=== PATIENT | male | born 1960 | race Caucasian/White ===

== ENCOUNTER 2016-05-29 05:26 | Inpatient (IN) | payer MEDICARE ==
[~2016-05-29] VITALS: Ht 182.9 cm; Wt 73.5 kg
--- NOTE | 2016-06-02 10:29 | CO ---
ADMIT: 05/29/2016 RM/LOC: 409 [facility] MR#: [id number] [address] [facility] [address] [place] [phone] DANITZA CARRIZALES [address] [place] [address] Consultation SEX: M AGE: 55 : 1960 DATE OF CONSULTATION: 05/31/2016 ATTENDING PHYSICIAN: Favio Guadalupe CONSULTING PHYSICIAN: Corby Blevins MD HISTORY OF PRESENT ILLNESS: This 55-year-old gentleman was seen in consultation with bilateral pleural effusion, and he has had left thoracentesis done and 2 L of fluid has been removed by interventional Radiology earlier and labs pending. I discussed with Dr. Guadalupe, who admitted him. There is a diagnosis of non-Hodgkin lymphoma, but I was mistakenly told that it was multiple myeloma in 2011. He has subsequently received stem cell transplantation after chemotherapy. He has come in with increased shortness of breath. He is also due to have the right thoracentesis by Interventional Radiology again. 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 He has been a heavy smoker, although he has been trying to cut it down. He has lost some weight, and his appetite remains good. He does have some lower chest right upper abdomen discomfort with bending. He has not felt any lump at this time, but on initial presentation, he had lymph nodes in both axilla and also in the groin area. The biopsy it seems was obtained from the axillary lymph node biopsy, also cervical lymph node biopsy. Aspiration of the groin lymph node done that I understand was nonconclusive. On general physical evaluation, he is a very pleasant gentleman, did not appear to be in any distress. He thinks he can breathe better with the fluid off. He is afebrile, heart rate around 95, respiration 18, and blood pressure 108/76. On 2 L, his oxygen saturation was 97%. He had no palpable lymphadenopathy in the neck. There was no lymph node in the groin. There was no clubbing. He has extensive areas of friction rub on the left chest where the thoracentesis has been done. The right is due to be done. No heart murmur. Distinct organomegaly could not be appreciated. There was no edema or calf tenderness. His chest x-ray and CT scans reviewed, large pleural effusion on the left, smaller on the right side noted. LABORATORY INVESTIGATIONS: Hemoglobin of 8.6, platelet 131, and white count ADMIT: 05/29/2016 RM/LOC: 409 [facility] MR#: [id number] [address] [address] [place] [address] Consultation SEX: M AGE: 55 : 1960 5.5. His BUN 29, creatinine 1.5. IMPRESSION: 1. Bilateral pleural effusion, left more than the right. Thoracentesis done on the left. Right one to be done. 2. Non-Hodgkin lymphoma status post chemo and bone marrow transplantation. Possibility of reactivation of the disease process needs to be worked up. Oncology is going to see. From my standpoint if the fluid reoccurs, he may need a video-assisted thoracoscopic pleurodesis at least on one site if not on both is indeed it is a reactivation of the underlying non- Hodgkin lymphoma. Hopefully, further chemotherapy will be necessary. No pulmonary intervention is anticipated at this point. Corby Blevins MD/ bhavin JOB #: [id number] CC: Favio Guadalupe, Attending Physician Adarsh Mancia, Family Physician
[2016-06-03] MEDS ORDERED: NORCO 5-325 TA1 EACH PO (11:14)
--- NOTE | 2016-06-05 07:13 | CO ---
ADMIT: 05/29/2016 RM/LOC: 409 [facility] MR#: [id number] [address] [address] DANITZA CARRIZALES [address] [place] [address] Consultation SEX: M AGE: 55 : 1960 DATE OF CONSULTATION: 05/31/2016 ATTENDING PHYSICIAN: Favio Guadalupe CONSULTING PHYSICIAN: Joel Diaz MD HISTORY OF PRESENT ILLNESS: This is a 55-year-old male seen in Surgical consultation for possible lymph node biopsy. Danitza, in 2011, was diagnosed with non-Hodgkin's lymphoma. He underwent treatment, which included chemotherapy as well as stem cell transplant for that at that point. Last night, he presented to the ER with complaints of shortness of breath and difficulty with breathing. He was evaluated with a CT of the chest, which demonstrated large bilateral pleural effusions as well as axillary and mediastinal adenopathy. He does describe some recent fatigue, but has otherwise really been without significant health change. PAST MEDICAL HISTORY: 1. COPD with prior smoking history. 2. Non-Hodgkin's lymphoma, status post stem cell transplant. MEDICATIONS ON ADMISSION: Please see the medication reconciliation notes. ALLERGIES: PENICILLIN. PAST SURGICAL HISTORY: 1. Stem cell transplant. 2. Lymph node biopsies. 3. Port insertion. FAMILY HISTORY: Significant for Alzheimer's and Ruth Gehrig disease. REVIEW OF SYSTEMS: Symptoms recently developed are mentioned in the history of present illness, and the remainder of the 10-point review of systems is otherwise negative for recent change. PHYSICAL EXAMINATION: GENERAL: Danitza is alert, oriented, and in no acute distress. VITAL SIGNS: His cranial nerves are intact. He is afebrile. His vital signs are stable. HEENT: Sclerae appear anicteric. NECK: Supple, without palpable lymphadenopathy. LUNGS: Clear today bilaterally after draining the pleural effusions yesterday. ADMIT: 05/29/2016 RM/LOC: 409 [facility] MR#: [id number] [address] [address] DANITZA CARRIZALES [address] [place] [address] Consultation SEX: M AGE: 55 : 1960 HEART: Regular rate and rhythm. ABDOMEN: Soft and nontender. EXTREMITIES: Calves are soft bilaterally with no clubbing, cyanosis, or edema. AXILLAE: Exam of bilateral axilla reveal bilateral palpable enlarged lymph nodes, more easily palpable on the right. IMPRESSION: History of non-Hodgkin's lymphoma with new lymphadenopathy and pleural effusions. PLAN: I have recommended proceeding with right axillary lymph node biopsy for assistance with management for Oncology. I discussed the risks of that with Lele today in detail and he does wish to proceed. Joel Diaz MD/ bhavin JOB #: [id number] CC: Favio Guadalupe, Attending Physician Adarsh Mancia, Family Physician
--- NOTE | 2016-06-05 07:13 | OR ---
ADMIT: 05/29/2016 RM/LOC: 409 [facility] MR#: [id number] [address] [address] DANITZA CARRIZALES [address] [place] [address] Operative/Delivery Room Report SEX: M AGE: 55 : 1960 SURGERY DATE: 06/02/2016 SURGEON: Joel Diaz MD PREOPERATIVE DIAGNOSIS: Lymphoma history with axillary adenopathy. POSTOPERATIVE DIAGNOSIS: Lymphoma history with axillary adenopathy. PROCEDURE: Right axillary deep lymph node excisional biopsy. ANESTHESIA: General. ESTIMATED BLOOD LOSS: 10 mL. DESCRIPTION OF PROCEDURE: The patient was taken to the operating room and placed supine on the operating room table. General anesthesia was established. The right axilla was prepped and draped in the standard surgical fashion. The prior scar and this site was incised sharply. Dissection proceeded sharply into the axillary content. One of the very enlarged nodes was carefully identified and excised carefully with cautery and sent as specimen. The wound was irrigated and there was no bleeding. This node measured nearly 3 cm in diameter. The deep tissue was closed with 3-0 Vicryl suture. Skin edges were approximated with 4-0 Monocryl in a subcuticular fashion and Dermabond. Local anesthetic was injected and a dressing was applied. Sponge, needle, and instrument counts were correct at the end of the case. The patient tolerated the procedure well and was transferred to the recovery area in stable condition. Joel Diaz MD/ modl JOB #: [id number] CC: Favio Guadalupe MD, Attending Physician Adarsh Mancia MD, Family Physician
--- NOTE | 2016-06-13 08:13 | ER ---
ADMIT: 05/29/2016 RM/LOC: ER [facility] MR#: [id number] 2620 [facility] [address] [place] [phone] DANITZA CARRIZALES [address] [facility] [place] [address] Emergency Room Report SEX: M AGE: 55 : 1960 DATE: 05/29/2016 See T-sheet for complete H and P. ADDENDUM: A 55-year-old male, presents with increasing shortness of breath for the past week. He feels like he has significant dyspnea on exertion. He does have a history of Hodgkin lymphoma, which was diagnosed several years ago and apparently, he has been cancer free as far as he know for the past 3 years. He has been a lifelong smoker and still smokes at this time. He really has no other major medical problems. He does not take any medications. The patient normally sees Dr. Mancia in [place]. He was worked up here initially and had a sepsis routine done, which his lab results were fairly unremarkable other than hemoglobin of 9.4, which is not new for him and a creatinine of 1.5. His lactic acid was 1. CT angio of the chest was done, which does not reveal PE but does have large bilateral pleural effusions, left more than right. At this point, the patient will need to be admitted as he is requiring oxygen to keep the sats up and to further evaluate these pleural effusions and to arrange for the fusions to be drained. I spoke to Dr. Guadalupe who is on for city call, who graciously admitted the patient to his service. The patient is admitted in stable condition. DIAGNOSES: 1. Large bilateral pleural effusions. 2. Shortness of breath. 3. Dyspnea. Carlos Naranjo MD/ bhavin JOB #: [id number] CC: Zenon Bocanegra MD, Attending Physician Adarsh Mancia MD, Family Physician
--- NOTE | 2016-06-13 16:22 | DS ---
ADMIT: 05/29/2016 RM/LOC: 409 [facility] MR#: [id number] [address] [address] ADNITZA CARRIZALES [address] [place] [address] General Discharge Summary SEX: M AGE: 55 : 1960 ADMISSION DATE: 05/29/2016 DISCHARGE DATE: 06/02/2016 FINAL DIAGNOSES: 1. Acute hypoxic respiratory failure. 2. Bilateral pleural effusions. 3. Status post thoracentesis bilaterally status post bone marrow biopsy. 4. Lymphadenopathy. 5. History of Hodgkin lymphoma. 6. Status post right axillary deep lymph node excisional biopsy. REASON FOR ADMISSION: This is a 55-year-old gentleman, history of Hodgkin disease, who presented with shortness of breath, initially was found to have bilateral pleural effusions. HOSPITAL COURSE: He was admitted and found to be hypoxic. He had 2 L of fluid removed by Interventional Radiology initially. He ultimately then had his other lung have a thoracentesis as well. Initial workup proved these to be exudative pleural effusions. Oncology was consulted given his history of lymphoma. They opted for him to have an excisional lymph node biopsy. CT scan of the abdomen and pelvis showed diffuse lymphadenopathy which had increased since his prior scans. He had axillary lymph node dissection and had a bone marrow biopsy and was set up to be discharged to home. Other consults include Pulmonology. DISCHARGE MEDICATIONS: See discharge medication list. FOLLOWUP: He will follow up with basically the doctor of his choice. He can follow up with me if he wishes in 1-2 weeks. Favio Guadalupe MD/ bhavin JOB #: [id number] CC: Favio Guadalupe MD, Attending Physician Adarsh Mancia MD, Family Physician
--- NOTE | 2016-06-17 12:58 | HP ---
ADMIT: 05/29/2016 RM/LOC: 409 [facility] MR#: [id number] 26[address] [facility] [address] [place] [phone] DANITZA CARRIZALES [address] [place] [address] History and Physical SEX: M AGE: 55 : 1960 DATE OF SERVICE: CHIEF COMPLAINT: Shortness of breath. HISTORY OF PRESENT ILLNESS: This is a 55-year-old gentleman, presented with increased shortness of breath for the past week. It is worse with walking. He has history of non-Hodgkin's lymphoma, diagnosed a few years ago. He reports he has been cancer free for about 3 years. He has been a lifelong smoker, still smokes. Denies any other medical problems. Usually sees Dr. Mancia in [place]. Initially, he was worked up here. Initial hemoglobin was 9.4, creatinine 1.5, lactic acid was okay. They did CT angio of his chest. He had no PE but large bilateral pleural effusions, which is left greater than right and he is requiring oxygen to keep his sats up. He is still very short of breath, says on-call to admit him for this purpose. He says that he has hard time taking deep breath like his lungs are just full. He denies any increased cough, fever or chills at all. He thinks the shortness of breath is worse when he lies flat. Currently, he is kind of leaning forward. He also has had some associated weakness. PAST HISTORY: Includes COPD; non-Hodgkin lymphoma, status post stem cell transplant in the past. He has a left upper chest port. He has family historyof Alzheimer disease and Ruth Gehrig disease. SOCIAL HISTORY: He has been a lifelong smoker. 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 REVIEW OF SYSTEMS: Other complete review of systems obtained, negative except as above. PHYSICAL EXAMINATION: VITAL SIGNS: Blood pressure 129/82, oxygen saturation 92% on 4 L of oxygen by nasal cannula, pulse 105, temp 97.6, respirations 26. GENERAL: This is an ill-appearing 55-year-old gentleman. He is in some mild respiratory distress. He is overly very thin. HEENT: Pupils are equal, round, and reactive to light and accommodation. He has poor dentition. NECK: Supple. HEART: Regular rate and rhythm. LUNGS: Lungs are diminished bilaterally. They are dull to percussion bilaterally as well. Breath sounds are better in the upper lobes bilaterally. ABDOMEN: Soft without any tenderness. EXTREMITIES: His lower extremities do have some trace edema bilaterally. He can move all extremities equally bilaterally. It does show increased work with this. LABORATORY AND X-RAY DATA: White count 5.2, hemoglobin 9.4, platelets of 115. CT did show large pleural effusions. ASSESSMENT AND PLAN: ADMIT: 05/29/2016 RM/LOC: 409 [facility] MR#: [id number] [address] [place] [id number] [place] [address] History and Physical SEX: M AGE: 55 : 1960 1. Shortness of breath. 2. Hypoxic respiratory failure. 3. Bilateral pleural effusions, large. 4. Chronic kidney disease, stage III. 5. Anemia. 6. Thrombocytopenia. 7. History non-Hodgkin's lymphoma. PLAN: The patient has been admitted to the hospital. We will set him up with thoracentesis and have these evaluated. Also evaluate his iron studies, folate, and B12, given his anemia. Depending on the results of the fluid analysis, we will go from there. Favio Guadalupe MD/ bhavin JOB #: [id number] CC: Favio Guadalupe MD, Attending Physician Adarsh Mancia MD, Family Physician
[2016-11-25] MEDS ORDERED: COMPAZINE DPS5 MG PO (10:15)
[2016-11-25] MEDS ORDERED: MS CONTIN DPS15 MG PO (10:15)
[2016-11-25] MEDS ORDERED: ZOLOFT50 MG PO (10:16)
[2016-11-25] MEDS ORDERED: LEVAQUIN DPS750 MG PO (10:17)
[2016-11-25] MEDS ORDERED: SPIRIVA18 MCG IH (10:17)
[2016-11-25] MEDS ORDERED: SYMBICORT160 MCG/6 IH (10:17)
== END 2016-06-02 16:50 | disposition home or self-care (01) | DRG 823 ==
LOC: ER 05:26 → 4PCU 07:43
PROVIDERS: ADMIT Internal Medicine
PROC: 0W9B3ZX Drainage of Left Pleural Cavity, Percutaneous Approach, Diagnostic (ICD-10-PCS; principal; 2016-05-29)
PROC: 0W993ZX Drainage of Right Pleural Cavity, Percutaneous Approach, Diagnostic (ICD-10-PCS; 2016-05-30)
PROC: 3E0234Z Introduction of Serum, Toxoid and Vaccine into Muscle, Percutaneous Approach (ICD-10-PCS; 2016-06-02)
PROC: 07DR3ZX Extraction of Iliac Bone Marrow, Percutaneous Approach, Diagnostic (ICD-10-PCS; 2016-06-02)
PROC: 07B50ZX Excision of Right Axillary Lymphatic, Open Approach, Diagnostic (ICD-10-PCS; 2016-06-02)
DX: C85.98 Non-Hodgkin lymphoma, unspecified, lymph nodes of multiple sites (principal); J96.01 Acute respiratory failure with hypoxia; J91.8 Pleural effusion in other conditions classified elsewhere; D61.818 Other pancytopenia; Z94.84 Stem cells transplant status; N18.3 Chronic kidney disease, stage 3 (moderate); Z23 Encounter for immunization; F17.200 Nicotine dependence, unspecified, uncomplicated; J44.9 Chronic obstructive pulmonary disease, unspecified

== ENCOUNTER 2016-06-08 08:19 | Inpatient (IN) | payer MEDICARE ==
[~2016-06-08] VITALS: Ht 182.9 cm; Wt 81.6 kg
--- NOTE | ~2016-06-08 | ECH ---
Transthoracic Echocardiography Report (TTE) Demographics Patient Name DANIZTA CARRIZALES Date of Study 06/08/2016 Patient Number [id number] Visit Number [id number] Date of 1960 Room Number 305 Accession Number [id number] Gender Male Age 55 year(s) Referring [facility] Licensed Practical Nurse Carolann Lynn MD [facility] Physician Interpreting Brenda Chairez MD Development Rep Physician Supervising Ordering Physician Joel Dunham MD/KELLIE BULLOCK Nurse Stress [employer] Conclusions Summary Technically good exam. The estimated left ventricular ejection fraction is 60%. Diastolic assessment reveals Grade I diastolic dysfunction. The interatrial septum appears aneurysmal. Trivial hemodynamically insignificant posterior pericardial effusion. No significant valvular abnormalities. Procedure Type of Study TTE procedure:Echo Complete SF. Procedure Date Date: 06/08/2016 Start: 12:22 PM Technical Quality: Good visualization Indications:Shortness of breath and Cardiomegaly. Appropriate Use Criteria: 9 Height: 72 inches Weight: 179 pounds BSA: 2.03 m Rhythm: Sinus tachycardia HR: 109 bpm BP: 139/64 mmHg M-Mode/2D Measurements LV Diastolic Dimension: 5.58 cm LV Systolic Dimension: 4.52 cm LV Septum Diastolic: 0.89 cm LV PW Diastolic: 0.88 cm AO Root Dimension: 2.8 cm Cardiac Output: 6.68 l/min LA Dimension: 3.49 cm Cardiac Index: 3.29 l/min*m RV Diastolic Dimension: 3.37 cm LA volume index: 22 ml/m Post Pericard Effusion: 0.3 cm LVOT: 2.46 cm LVOT VTI: 12.9 cm RV Base: 3.9 cm LV Stroke volume: 61.28 ml RV Mid: 1.9 cm LV Stroke volume index: 30.19 ml/m TAPSE: 2.7 cm TDI-S': 18 cm/s Doppler Measurements AV Peak Velocity: 1.2 m/s MV Peak E-Wave: 0.56 m/s AV Peak Gradient: 5.76 mmHg MV Peak A-Wave: 0.92 m/s AV Mean Gradient: 3.79 mmHg MV E/A Ratio: 0.61 LVOT Peak Velocity: 0.94 m/s MV P1/2t: 41.9 msec AV Area (Continuity):3.53 cm MV Deceleration Time: 144.4 msec TR Velocity:2.54 m/s MV Area (PHT): 5.25 cm TR Gradient:25.85 mmHg PV Peak Velocity: 0.91 m/s Estimated RAP:3 mmHg PV Peak Gradient: 3.34 mmHg Estimated RVSP: 29 mmHg Estimated PASP: 28.85 mmHg E' Septal Velocity: 0.08 m/s A' Septal Velocity: 0.14 m/s E' Lateral Velocity: 0.07 m/s A' Lateral Velocity: 0.12 m/s RA Area: 13.38 cm Findings Left Ventricle Normal left ventricle size and function. Diastolic assessment reveals Grade I diastolic dysfunction. Right Ventricle Normal right ventricle structure and function. Left Atrium Normal left atrial size. The interatrial septum appears aneurysmal. Right Atrium Normal right atrial size. Mitral Valve Normal mitral valve structure and function. Trivial mitral regurgitation by color Doppler. Aortic Valve Normal aortic valve structure and function. Tricuspid Valve Normal tricuspid valve structure and function. Trivial tricuspid regurgitation by color Doppler. Normal pulmonary pressures. Pulmonic Valve Normal pulmonic valve structure and function. Pericardial Effusion Trivial hemodynamically insignificant posterior pericardial effusion. Miscellaneous Visualized portions of the aortic root and ascending aorta appear normal in size. Pleural Effusion Pleural effusion present. Signature
--- NOTE | ~2016-06-08 | HP ---
ADMIT: 06/08/2016 RM/LOC: 305 [facility] MR#: [id number] 2620 [facility] [address] [place] [address] DANITZA CARRIZALES [address] [place] [address] History and Physical SEX: M AGE: 55 : 1960 DATE OF SERVICE: 06/08/2016 CHIEF COMPLAINT: Severe left-sided chest pain, dyspnea. HISTORY OF PRESENT ILLNESS: Mr. Carrizales is a 55-year-old man, he has a past medical history significant for follicular lymphoma, diagnosed in 2009, stage IV at the time of diagnosis. Received IV chemo of CHOP and Rituxan, had recurrence of his symptoms, August of 2013. Had chemotherapy with ICE protocol at that time, and then went on to have a stem cell transplant. He had actually been admitted to the hospital back on May 29. At that time, when he was admitted, he was having increased shortness of breath, bilateral pleural effusions. He had a thoracentesis done for these bilateral pleural effusions. He also had a left axillary lymph node biopsy as well as a bone- marrow biopsy. They were actually going to Oncology tomorrow to get the results which did show recurrent follicular lymphoma. He, however, reports that he was feeling well. He has been home for 6 days, notes he was feeling fine. Once he got home, but then all of a sudden last night started having sweats, severe onset of left-sided chest pain, and shortness of breath. Came into the ER. They noted that he had what looked like a pleural effusion on left as well. DICTATION ENDS HERE Liliana Maldonado MD/ bhavin JOB #: [id number] CC: Favio Guadalupe, Attending Physician Favio Guadalupe, Family Physician
[~2016-06-08 08:19] MED LIST: NORCO 5-325 TA1 EACH PO
--- NOTE | 2016-06-11 13:18 | ER ---
ADMIT: 06/08/2016 RM/LOC: 305 [facility] MR#: [id number] [address] [facility] [address] [place] [address] DANITZA CARRIZALES [address] [place] [address] Emergency Room Report SEX: M AGE: 55 : 1960 DATE: 06/08/2016 TIME: 0819 hours. Please refer to my T-sheet for complete H and P. Briefly, the patient is a 55- year-old who has a history of COPD and non-Hodgkin's lymphoma. He apparently has had a recurrent episode recently. He was in the hospital with bilateral pleural effusions. He has had a stem-cell transplant in the past. He says he has had increasing shortness of breath that started last night, getting a lot worse. He feels weak, no energy. PHYSICAL EXAMINATION: VITAL SIGNS: Blood pressure 155/84, pulse 134, respirations 38, temp 100.3, and saturating 97%. GENERAL: He is anxious. HEENT: Grossly normal. LUNGS: Coarse with bilateral lower lobe rales and rhonchi. HEART: Tachy. ABDOMEN: Soft, nontender. EXTREMITIES: No cyanosis, clubbing, or edema. EMERGENCY DEPARTMENT COURSE: Chest x-ray revealed bilateral pleural effusions and/or infiltrate, recurrent. CBC is normal except white count 1.8, hemoglobin 10.8, and platelets 129. Chemistries normal except glucose 116. Lactate was 2.1. Cardiac enzymes negative. Blood cultures x2 were sent. EKG was sinus tach, rate 128, no changes. We did the whole sepsis protocol. We ordered the fluids, 30 per kg IV will be given. He was given a DuoNeb, started the antibiotics in the Emergency Department after the blood cultures. I talked to Dr. Liliana Maldonado who will admit to the ICU. ASSESSMENT: 1. Bilateral pneumonia. 2. Pancytopenia. 3. Sepsis. 4. History of non-Hodgkin's. PLAN: Admit to the hospital under the care Dr. Maldonado. Zenon Bocanegra MD/ bhavin JOB #: [id number] CC: Favio Guadalupe MD, Attending Physician Favio Guadalupe MD, Family Physician
[2016-06-13] MEDS ORDERED: MIRALAX PACKET17 GM PO (20:57)
[2016-06-13] MEDS ORDERED: COLACE-DPS100 MG PO (20:57)
[2016-06-13] MEDS ORDERED: PEPCID DPS20 MG PO (20:58)
[2016-06-13] MEDS ORDERED: ZYLOPRIM-DPS300 MG PO (20:58)
[2016-06-13] MEDS ORDERED: PROAIR HFA8.5 GM IH (20:58)
[2016-06-13] MEDS ORDERED: NICOTINE PATCH1 EAC2 TD (20:58)
[2016-06-13] MEDS ORDERED: KEFLEX-DPS500 MG PO (20:59)
[2016-06-13] MEDS ORDERED: DELTASONE DPS20 MG PO (20:59)
--- NOTE | 2016-06-17 09:48 | HP ---
ADMIT: 06/08/2016 RM/LOC: 305 [facility] MR#: [id number] 2620 [facility] [address] [place] [address] DANITZA BAUMANN [address] [place] [address] History and Physical SEX: M AGE: 55 : 1960 DATE OF SERVICE: CHIEF COMPLAINT: Left-sided chest pain and dyspnea. HISTORY OF PRESENT ILLNESS: Mr. Baumann is a 55-year-old man, he had a past medical history significant for history of follicular lymphoma, diagnosed in 2009, then again had some recurrence in 2013, and then had a stem cell transplant. He was actually admitted approximately a week ago. At that time, he had bilateral pleural effusions and underwent a thoracentesis. He also underwent an axillary lymph node dissection and a bone marrow biopsy, was discharged home 6 days ago. He reports he was supposed to follow up with Oncology tomorrow to review the results but it does look as if he had recurrent follicular lymphoma, both in the lymph node as well as in the bone marrow biopsy. The patient reports he was doing fine until last night when he had he says bilateral chest pain as well as shortness of breath. He came into the ER, was noted to have a fever of 100.3, and was also noted to have increased cardiomegaly and possible recurrent left-sided pleural effusion. He denies any other complaints at this time. PAST MEDICAL HISTORY: Significant for: 1. Follicular lymphoma, diagnosed in 2009, stage IV at that time. He received CHOP and Rituxan. He had recurrence of his disease in August of 2013, started on chemo with ICE therapy at that time and apparently had a stem cell transplant. 2. He has history of seizure disorder. 3. COPD. 4. History of medical noncompliance. 5. Depression. ALLERGIES: TO PENICILLIN. MEDICATIONS: Currently are [place]. SOCIAL HISTORY: He does smoke a half a pack per day and has for 37 years. He does not use any significant alcohol. FAMILY HISTORY: Positive for cancer, hypertension, diabetes, and stroke. REVIEW OF SYSTEMS: Obtained, was otherwise essentially negative. PHYSICAL EXAMINATION: GENERAL: He is in quite a bit of distress. He is writhing in pain. HEENT: Pupils are round and reactive. Oropharynx has dry mucous membranes. NECK: Supple. HEART: Tachycardic with regular rhythm, but it is distant. LUNGS: Diminished breath sounds bilaterally, left greater than right. ABDOMEN: Soft. Bowel sounds are present. EXTREMITIES: Have no evidence of edema. ADMIT: 06/08/2016 RM/LOC: 305 [facility] MR#: [id number] [address] [address] [place] [address] History and Physical SEX: M AGE: 55 : 1960 ASSESSMENT AND PLAN: 1. Left-sided pleural effusion. At this time, we will go ahead and ask Pulmonary to see. 2. Possible sepsis. We will go ahead and start him on Vanco and aztreonam. He received IV fluids in the ER. 3. Question of congestive heart failure. We will go ahead and check a BNP and stat echo with the immense cardiomegaly that he has. 4. Recurrent non-Hodgkin's lymphoma. I did talk with Dr. Oneal, who will come and see the patient and consider starting treatment for his recurrent non-Hodgkin's lymphoma. Otherwise, we will plan to monitor. Patient is quite ill. I spent 60 minutes in the evalation and admission of this patient. Liliana Maldonado MD/ bhavin JOB #: [id number] CC: Favio Guadalupe, Attending Physician Favio Guadalupe, Family Physician
--- NOTE | 2016-06-17 12:58 | DS ---
ADMIT: 06/08/2016 RM/LOC: 305 [facility] MR#: [id number] [address] [address] DANITZA CARRIZALES [address] [place] [address] General Discharge Summary SEX: M AGE: 55 : 1960 ADMISSION DATE: 06/08/2016 DISCHARGE DATE: 06/13/2016 FINAL DIAGNOSES: 1. Shortness of breath with pleuritic chest pain. 2. Large pleural effusion, status post VATS procedure. 3. Group B strep positive broth culture only on left pleural effusion. 4. Left pleural effusion positive for follicular lymphoma on cytology studies. 5. Hypoxic respiratory failure. 6. Follicular lymphoma, recurrent. 7. Chronic obstructive pulmonary disease. 8. Pancytopenia. REASON FOR ADMISSION: See dictated H and P. Briefly, this is a 55-year-old gentleman with a recent admission, presented with increased shortness of breath and chest pain. HOSPITAL COURSE: He was admitted and found to have a large pleural effusion. He ultimately had this drained and then because of his complex nature was taken for a VATS, had large septations which were taken down. Broth grew out group B strep. He was considered for transfer to [facility]. However, because of the infection and need for treating this, felt like he was not going to be in good shape to undergo chemo presently, so therefore he was kept on antibiotics and arranged for close followup through [facility] Oncology Department with help of Dr. Colón. On the day of discharge, he was set up with antibiotics in the form of Keflex 1 g b.i.d. Initially here, he was on meropenem and vancomycin because of his recent hospitalization status. On day of discharge, white count was 2.7, hemoglobin 8.3. He will follow up with Oncology early next week in [place]. See discharge medication list for that list. Favio Guadalupe MD/ bhavin JOB #: [id number] CC: Favio Guadalupe MD, Attending Physician Favio Guadalupe MD, Family Physician
--- NOTE | 2016-06-18 10:45 | OR ---
ADMIT: 06/08/2016 RM/LOC: 305 [facility] MR#: [id number] [address] [address] DANITZA CARRIZALES [address] [place] [address] Operative/Delivery Room Report SEX: M AGE: 55 : 1960 SURGERY DATE: 06/09/2016 SURGEON: Salinas Lowery MD PREOPERATIVE DIAGNOSIS: Loculated left-sided pleural effusion. POSTOPERATIVE DIAGNOSIS: Loculated left-sided pleural effusion. PROCEDURE PERFORMED: Left-sided thoracoscopic decortication of loculated pleural effusion. CROP PICKER: NATALI Rudolph. ANESTHESIA: General endotracheal with the addition of Marcaine in the wounds postprocedure. ESTIMATED BLOOD LOSS: Less than 20 mL. DESCRIPTION OF PROCEDURE: After appropriate informed consent was obtained, the patient was brought to the operating room. General endotracheal anesthesia was induced with double-lumen endotracheal tube. He was positioned with his left side up, held in place with a bender bag. All extremities were appropriately padded. Left chest was prepped and draped in a sterile fashion. With this accomplished, at approximately 7th intercostal space, anterior axillary line incision was created. This was carried deep with a curved hemostat, entered into the chest up over the edge of the rib. Immediately got some clear fluid out from the chest. This was collected with a syringe and about 60 mL of this fluid was sent to pathology for culture and sensitivity. Next, the camera was introduced. There was some clearly loculated effusion in the left chest. Took a little while just with the tip of the camera to break down some of these loculations so we could get some space to work. I used a finder needle on the posterior aspect of his chest and I identified an open space where I could place a second port. So, an incision was created and the second Thoracoport was placed. Suction was introduced and the fluid and the thin fibrinous debris was suctioned out. Some of the loculations were too thick to suction out. So, I had to use curved ring forceps to break up those loculations and remove this. The fibrinous debris was sent to Pathology at the end of the case. Ultimately, with some persistence and careful dissection, I was able to break up all the loculations inferiorly along the diaphragm and posteriorly. The largest collection actually was anterior medial. I was able to peel the lung laterally and break into this fluid- filled loculated area medially. It was kind of some turbid fluid not frankly purulent. There was no blood there. I initially thought there would be a hemothorax, but just all pleural fluid. This was all suctioned out and the fibrinous debris was debrided and removed. With the upper lobe and lower lobe completely freed up and the fissure opened up, I then irrigated out the chest copiously with a couple of liters of saline. A 32-Cook Islander chest tube was then ADMIT: 06/08/2016 RM/LOC: 305 [facility] MR#: [id number] [address] [place] [phone] [place] [address] Operative/Delivery Room Report SEX: M AGE: 55 : 1960 placed through my anterior port site. This was sewn into place with a couple of 2-0 silk sutures. The lung was reinflated and came up nicely. The other Thoracoport site was closed with 3-0 Vicryl in the muscular layer and then interrupted 4-0 Monocryl in the skin. Sterile dressings were applied. The chest tube was placed to Pleur-evac suction. Houston Ibrahim assisted in this entire procedure. His help was necessary for retraction and camera driving. Salinas Lowery MD/ bhavin JOB #: [id number] CC: Favio Guadalupe, Attending Physician Favio Guadalupe, Family Physician MD Garrick Alexandra MD Mehmet S Copur, MD
--- NOTE | 2016-06-20 12:21 | CO ---
ADMIT: 06/08/2016 RM/LOC: 305 [facility] MR#: [id number] [address] [address] DANITZA CARRIZALES [address] [place] [address] Consultation SEX: M AGE: 55 : 1960 DATE OF CONSULTATION: 06/08/2016 ATTENDING PHYSICIAN: Favio Guadalupe CONSULTING PHYSICIAN: Garrick Oneal MD REASON FOR CONSULTATION: Non-Hodgkin's lymphoma. HISTORY OF PRESENT ILLNESS: The patient is a 55-year-old male, who was just admitted to the hospital this morning after he presented to the emergency room with fairly severe functional decline, some chest pain, and hypotension. He is now admitted to the intensive care unit. He was just recently hospitalized with acute respiratory failure and pleural effusions and was found to have relapsed lymphoma just last week. He was discharged on 06/02/2016 and now presents again with again some respiratory distress and this hypotension. During that prior admission, he underwent a bone marrow biopsy as well as lymph node biopsy. These have now returned showing a relapsed non-Hodgkin's lymphoma consistent with his prior follicular lymphoma. Our pathologists as well as [facility] have labeled this as a follicular grade 2 lymphoma in his lymph node, which is actually encouraging and better than his prior follicular grade 3 lymphoma. His bone marrow biopsy showed an atypical lymphocyte infiltrate with recurrent follicular lymphoma involving about 40% of the bone marrow space. Now with this hospital presentation, he has undergone a repeat CT scan of the chest which showed fairly significant left pleural effusion that was actually drained with 800 mL removed prior to the CT scan, but appears to be quite loculated. The thoracentesis that was performed this morning was either purulent or chylous with fluid studies pending on that procedure. He does have diffuse adenopathy in his chest, in the axilla, mediastinum, and hilar regions as well as in the upper abdomen. His blood work here on admission shows a white count of 1.8 hemoglobin 10.8, and platelets of 129 with a neutrophil count of 0.8. His procalcitonin is 0.1. Lactic acid is 2.1. Creatinine is 1.3. LDH elevated at 274. There was concern about possible pericardial effusion, so he did undergo an echocardiogram in the ICU this morning as well that showed an EF of 60% and no evidence of tamponade or even a significant pericardial effusion. The patient really is only able to tell me that he has fairly severe chest pain. He is short of breath. He is weak and tired. He otherwise basically refuses to endorse any other questions on my review of systems due to his discomfort. PAST MEDICAL HISTORY: 1. Non-Hodgkin's lymphoma. He was originally diagnosed in 2011 with a grade 3 with a mixed grade 2 findings in an axillary lymph node with stage IV disease. He was treated with 6 cycles of R-CHOP and then received one single dose of maintenance rituximab. In August 2013, he had recurrent disease in several lymph nodes, and received 4 cycles of R-ICE with a good response. He then had an autologous stem cell transplant in 2014 and ADMIT: 06/08/2016 RM/LOC: 305 [facility] MR#: [id number] [address] [place] [phone] SOFIE DANITZA [address] [address] Consultation SEX: M AGE: 55 : 1960 had been in remission until just this past couple of weeks when he has been found to have relapse disease that on axillary biopsy shows only grade 2 follicular lymphoma. 2. COPD. 3. Depression. 4. Prior seizures. ALLERGIES: PENICILLIN. MEDICATIONS: Patient really only takes pain medications at home. SOCIAL HISTORY: The patient smokes up to a pack per day. He still is smoking at the time of admission. He does not abuse alcohol. FAMILY HISTORY: He is not aware of any recurrent malignancies in the family. There is diabetes and stroke in relatives. REVIEW OF SYSTEMS: Difficult to obtain, but basically includes severe chest pain, fatigue, and shortness of breath. He is otherwise refusing to provide me any additional history. PHYSICAL EXAMINATION: VITAL SIGNS: Temp is 98, pulse 100, respirations 31, blood pressure 87/60. GENERAL: The patient is in obvious distress and is alert. He is oriented, but does not really provide me much history. HEENT: Mucous membranes are moist. No oral lesions are seen. Extraocular muscles are intact. Pupils are reactive and symmetrical. NECK: Without adenopathy or JVD. HEART: Regular rate and rhythm without murmur. LUNGS: Clear to auscultation bilaterally without any crackles or wheezes. ABDOMEN: Soft, nontender, and nondistended with positive bowel sounds throughout. No organomegaly is appreciated. EXTREMITIES: He has no edema, rashes, lesions or adenopathy that I can palpate. LABS: See HPI. IMPRESSION: 1. Relapsed follicular lymphoma. 2. Hypotension. 3. Acute systemic inflammatory response syndrome. 4. Pleural effusion, presumed to be malignant. ADMIT: 06/08/2016 RM/LOC: 305 [facility] MR#: [id number] [address] [place] [id number] [place] [address] Consultation SEX: M AGE: 55 : 1960 RECOMMENDATIONS: At this point, it is unclear if his lymphoma is contributing significantly to his acute illness. His CT scan today does show more adenopathy in the chest than his most recent CT scan had shown. I would presume that this pleural effusion will ultimately be found to be malignant, although the cytology from 05/29/2016 thoracentesis was negative. I would recommend treating him as if he has underlying sepsis rather than blame all of his current presentation on his lymphoma since this really is a lower grade lymphoma than we had expected. I would possibly treat him with high-dose steroids to at least get some form of lymphoma control over the next couple of days. We will follow him closely during this admission and he will need started on his systemic chemotherapy as soon as we are comfortable that he is medically stable. I appreciate this consultation. Garrick Oneal MD/ bhavin JOB #: [id number] CC: Favio Guadalupe, Attending Physician Favio Guadalupe, Family Physician
--- NOTE | 2016-07-15 13:25 | CO ---
ADMIT: 06/08/2016 RM/LOC: 305 [facility] MR#: [id number] [address] [address] DANITZA CARRIZALES [address] [place] [address] Consultation SEX: M AGE: 55 : 1960 DATE OF CONSULTATION: 06/08/2016 ATTENDING PHYSICIAN: Favio Guadalupe CONSULTING PHYSICIAN: Dejuan Morales MD REASON FOR CONSULT: Left-sided pleural effusion. HISTORY OF PRESENT ILLNESS: This gentleman is a very pleasant 55-year-old gentleman, complicated history of lymphoma back in 2009, then a recurrence somewhere around in 2013 with a stem-cell transplant I believe in 2014. He recently had developed more adenopathy, and actually Dr. Diaz I think we could go tomorrow, did axillary lymph node biopsy. He also had a bone marrow. He is supposed to be following with Oncology, but came in because he had an increase left chest pain and dyspnea, found to have increasing left pleural effusion. He also has a right pleural effusion as well. Pulmonary was consulted and they did a thoracentesis, everett off about 700 mL, but followup x-ray showed kind of some increasing fluid up into the apex and more medially, almost looking like a wide mediastinum on regular chest x-ray. They did a CTA that shows a fairly loculated kind of walled off effusion that is thick density roblero, some of this is definitely blood. At this point, I do not think a small tube or even a regular large caliber chest tube unless you just happen to get marisela and get in the right pocket is going to adequately treat this. I have actually had Dr. Lowery look at his scan as well and review it. He agrees that he needs a video- assisted thoracoscopic surgery to clear up this fluid/empyema and leave a tube or two behind then. I have discussed that with him at this time that, that will be done tomorrow by Dr. Lowery. He understands and states he wishes to proceed. PAST MEDICAL HISTORY: Significant for the above as well as COPD, depression, continue to smoke. ALLERGIES: HE HAS AN ALLERGY TO PENICILLIN. MEDICATIONS: I think his only medication he has been on here is Follett. SOCIAL HISTORY: Like I said, he continues to smoke a half pack a day and has for many years. Denies any significant alcohol. FAMILY HISTORY: Positive for cancer, diabetes, stroke, hypertension. REVIEW OF SYSTEMS: Other than the above, left-sided chest pain and dyspnea, everything else is otherwise negative. Currently when I see him, he is feeling better, breathing easier, left-sided chest pain, able to rest. He is only on like 1 L to keep his sats up and they are coming off his pressor that they had ADMIT: 06/08/2016 RM/LOC: 305 [facility] MR#: [id number] [address] [place] [phone] [place] [address] Consultation SEX: M AGE: 55 : 1960 him on. His hemoglobin is right at 9, it was like 10.1 I think on admission. PHYSICAL EXAMINATION: EYES: His sclerae appear nonicteric. HEART: Tachy, but regular rate and rhythm without significant murmur. LUNGS: Decreased both sides, left greater than right. ABDOMEN: Soft. No significant mass or organomegaly detected. Positive bowel sounds. EXTREMITIES: Have no significant edema. ASSESSMENT AND PLAN: At this time, plan will be Dr. Lowery will do a video- assisted thorascopic surgery on the left side tomorrow, possibly right-sided chest tube, n.p.o. after midnight. Dejuan Morales MD/ bhavin JOB #: [id number] CC: Favio Guadalupe, Attending Physician Favio Guadalupe, Family Physician
--- NOTE | 2016-07-20 15:29 | CO ---
ADMIT: 06/08/2016 RM/LOC: 305 [facility] MR#: [id number] [address] [address] DANITZA BAUMANN [address] [place] [address] Consultation SEX: M AGE: 55 : 1960 DATE OF CONSULTATION: 06/08/2016 ATTENDING PHYSICIAN: Favio Guadalupe CONSULTING PHYSICIAN: Arie Dejesus MD, [facility] REASON FOR REFERRAL: Pleural effusion and hypotension. HISTORY OF PRESENT ILLNESS: Mr. Baumann is a 55-year-old male, who was admitted today for pleuritic chest pain, left and right-sided, and fever. The patient was recently admitted on 05/29/2016 and discharged on 06/02/2016. During that last hospitalization, he had bilateral pleural effusions which had thoracenteses performed on both sides. He also had bone marrow biopsies and lymph node biopsy showing a recurrent lymphoma, he has had Hodgkin's in the past. The patient presents here with recurrent symptoms. I have reviewed his thoracentesis reports from 05/30/2016, which showed a right-sided thorax, and he had 700 mL of cloudy fluid aspirated on the right side and on the left side, he had 2000 mL of fluid drained, this was serous fluid on the left side before. Of note, they did not mention anything about loculations on that fluid. The patient had negative cytologies on the previous thoracenteses. The lymph node biopsy of axillary showed follicular lymphoma. Fluid on the thoracentesis was marked as yellow opaque fluid. I do not see that was sent for flow cytometry. He is a smoker, he is trying to cut down. He apparently has a history of cardiomyopathy in the past with a previous echo on 01/25/2014 that showed an EF of 35% with global hypokinesis. Mitral valve was normal structure, tricuspid valve normal. The patient is in quite extreme discomfort at the current time from his pain. He is unable to contribute much more to his history at the current time. He is not on antibiotics at home. He is status post stem cell transplant, port insertion in anticipation of chemotherapy. He was noted to be hypotensive in the ER and was given a total of 2200 mL of fluid. PAST MEDICAL HISTORY: Remarkable for: 1. COPD. 2. Non-Hodgkin's lymphoma. 3. Port insertion. ALLERGIES: PENICILLIN WHICH CAUSES EDEMA AND RITUXAN. CURRENT MEDICATIONS: 1. Morphine. 2. Zofran. He has just been started on: 1. Vanco. 2. Aztreonam. FAMILY HISTORY: Noncontributory. ADMIT: 06/08/2016 RM/LOC: 305 [facility] MR#: [id number] [address] [address] [place] [address] Consultation SEX: M AGE: 55 : 1960 SOCIAL HISTORY: Noncontributory. REVIEW OF SYSTEMS: Other than mentioned above, he denies any problems. PHYSICAL EXAMINATION: VITAL SIGNS: Heart rate is 110, blood pressure is 92/40, respiratory rate is 24. GENERAL: He is in apparent discomfort, moaning and grimacing with pain. HEENT: Pupils are equal and reactive. NECK: Supple. Trachea is midline. No JVD. No thyromegaly. LUNGS: Decreased bases. CHEST: He is very tender to touch on his chest wall, but no crepitus. CV: Regular rate without murmurs, rubs, or gallops. ABDOMEN: Active bowel sounds. Soft, nontender. EXTREMITIES: No cyanosis, clubbing, or edema. SKIN: Without acute lesions. LABORATORY AND X-RAY DATA: Sodium 139, potassium 4.6, chloride 108, CO2 of 25, BUN 17, creatinine 1.3. His anion gap calculated is normal. Albumin is 2.7, phosphorus 1.6. Previous body fluid on 05/29 showed LDH of 168, total protein of 3.7. Serum protein at that time was about 5.7, but LDH of 253, giving him an exudative effusion on both criteria. CBC; white count is 1.8, hemoglobin 10.8, platelets are 129. Chest x-ray today shows small bilateral effusions and cardiomegaly, which is new for him. EKG shows no acute changes. IMPRESSION: 1. Hypotension. 2. Fever. 3. Pleural effusions. 4. Pancytopenia. 5. Non-Hodgkin's lymphoma. 6. Chest wall pain. RECOMMENDATIONS AND DISCUSSION: I was in attendance at the bedside when Ultrasound came to look at his pleural fluids. He has a large left-sided pleural effusion with multiple loculations. His right side is smaller and free flowing. I discussed with the family and did a thoracentesis with the and the patient's consent, and drained 700 mL of turbid fluid from his left chest wall with mild improvement in his symptoms. He has an echocardiogram pending. This pleural fluid could be infected, however, it could also be a chylothorax given his lymphoma and a previous history of it being turbid a week or so ago. I would like to get labs including a triglyceride level to see if it is a chylothorax. We will get a CT scan ADMIT: 06/08/2016 RM/LOC: 305 [facility] MR#: [id number] [address] [place] [phone] DANITZA BAUMANN [address] [place] [address] Consultation SEX: M AGE: 55 : 1960 because of the multiple adhesions. If it appears infected by labs, he would need a pigtail catheter for drainage. Otherwise, we would monitor him for the chylothorax. It is somewhat unusual for a chylothorax to have multiple adhesions. I am concerned about an infection. I will add Merrem to his regimen, I do realize he is Pen allergic, the cross-reactivity is extremely low and the benefits far outweighed the risks. We will await his echo for further monitoring of his blood pressure, he may need some pressors. I discussed with Dr. Maldonado, and Oncology has been consulted and feel that they would like to put him on steroids, this would be fine from my point of view. I spent 1 hour in critical care time in this patient excluding thoracentesis, which was 15 minutes long. We will await labs, continue antibiotics, and provide a pressor support. Arie Dejesus MD, FCCP/ modl JOB #: [id number] CC: Favio Guadalupe, Attending Physician Favio Guadalupe, Family Physician
--- NOTE | 2016-07-20 15:34 | OR ---
ADMIT: 06/08/2016 RM/LOC: 305 [facility] MR#: [id number] [address] [id number] DANITZA CARRIZALES [address] [facility] [place] [address] Operative/Delivery Room Report SEX: M AGE: 55 : 1960 SURGERY DATE: 06/08/2016 SURGEON: Arie Dejesus MD, [facility] PROCEDURE: Left-sided ultrasound-guided thoracentesis. PRE PROCEDURE DIAGNOSIS: Pleural effusion. POSTPROCEDURE DIAGNOSIS: Loculated pleural effusion. ANESTHESIA: 1% lidocaine local infiltration. ESTIMATED BLOOD LOSS: 0. COMPLICATIONS: None immediate. FINDINGS: After informed consent obtained from patient and , the signed the consent due the patient's current condition. The patient was sat on the side of bed sitting and his back exposed, prepped and draped in sterile manner after localizing pleural fluid on the left side under ultrasound guidance. The pleural fluid was quite loculated with multiple adhesions. I discussed the risks and benefits of proceeding with the patient, the patient was agreeable to proceed. Patient's skin to the pleural surface was anesthetized with 1% lidocaine. There was immediate return of opaque yellow fluid, drained 700 mL. Patient tolerated procedure well without any immediate complications. Postprocedure chest x-ray is currently pending. The fluid sent for microbiological and cytological studies and cultures as well as chemistries. 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 Arie Dejesus MD, FCCP/ modl JOB #: [id number] CC: Favio Guadalupe, Attending Physician Favio Guadalupe, Family Physician
[2016-11-25] MEDS ORDERED: MS CONTIN DPS15 MG PO (10:15)
[2016-11-25] MEDS ORDERED: COMPAZINE DPS5 MG PO (10:15)
[2016-11-25] MEDS ORDERED: ZOLOFT50 MG PO (10:16)
[2016-11-25] MEDS ORDERED: SPIRIVA18 MCG IH (10:17)
[2016-11-25] MEDS ORDERED: SYMBICORT160 MCG/6 IH (10:17)
[2016-11-25] MEDS ORDERED: LEVAQUIN DPS750 MG PO (10:17)
== END 2016-06-13 14:36 | disposition home or self-care (01) | DRG 853 ==
LOC: ER 08:19 → 3ICU 09:40
PROVIDERS: ADMIT Internal Medicine
PROC: 0W9B3ZX Drainage of Left Pleural Cavity, Percutaneous Approach, Diagnostic (ICD-10-PCS; 2016-06-08)
PROC: 0BDP4ZZ Extraction of Left Pleura, Percutaneous Endoscopic Approach (ICD-10-PCS; principal; 2016-06-09)
DX: A41.9 Sepsis, unspecified organism (principal); R65.21 Severe sepsis with septic shock; J96.91 Respiratory failure, unspecified with hypoxia; J91.0 Malignant pleural effusion; D61.818 Other pancytopenia; Z94.84 Stem cells transplant status; C85.98 Non-Hodgkin lymphoma, unspecified, lymph nodes of multiple sites; N18.3 Chronic kidney disease, stage 3 (moderate); I42.9 Cardiomyopathy, unspecified; B95.1 Streptococcus, group B, as the cause of diseases classified elsewhere; G40.909 Epilepsy, unspecified, not intractable, without status epilepticus; F17.210 Nicotine dependence, cigarettes, uncomplicated; J44.9 Chronic obstructive pulmonary disease, unspecified; F17.200 Nicotine dependence, unspecified, uncomplicated; F32.9 Major depressive disorder, single episode, unspecified

== ENCOUNTER 2016-06-16 10:15 | Day surgery (SDC) | payer MEDICARE ==
[~2016-06-16 10:15] MED LIST changes: +COLACE-DPS100 MG PO; +DELTASONE DPS20 MG PO; +KEFLEX-DPS500 MG PO; +MIRALAX PACKET17 GM PO; +NICOTINE PATCH1 EAC2 TD; +PEPCID DPS20 MG PO; +PROAIR HFA8.5 GM IH; +ZYLOPRIM-DPS300 MG PO
--- NOTE | 2016-06-22 21:33 | ER ---
ADMIT: 06/16/2016 RM/LOC: [facility] MR#: [id number] [address] [address] DANITZA CARRIZALES [address] [place] [address] Emergency Room Report SEX: M AGE: 55 : 1960 DATE: 06/16/2016 ADDENDUM: CHIEF COMPLAINT: Shortness of breath with chest pain. HISTORY OF PRESENT ILLNESS: This is a 55-year-old who ever since they pulled out his chest tube, he just had a lot of drainage, and also felt some air leaking from the area when he takes deep breaths or coughs. They did call the clinic this morning. They are worried about pneumothorax and he was sent to the ER. On examination, his is lungs are clear. His sats are 99% on room air. I did speak with Dr. Guadalupe after seeing chest x-ray, it does not show a pneumo. We are going to have him set up with Interventional Radiology to put the PleurX tube and having him followup with Oncology, appointment is scheduled on Thursday. CLINICAL IMPRESSION: Status post chest tube, chest wall drainage. DISPOSITION: He is stable at admit to short-stay surgery. NATALI Coppola / Carlos Naranjo MD / bhavin JOB #: [id number] CC: Jeremy Munoz MD, Attending Physician Jeremy Munoz MD, Family Physician
[2016-11-25] MEDS ORDERED: COMPAZINE DPS5 MG PO (10:15)
[2016-11-25] MEDS ORDERED: MS CONTIN DPS15 MG PO (10:15)
[2016-11-25] MEDS ORDERED: ZOLOFT50 MG PO (10:16)
[2016-11-25] MEDS ORDERED: SPIRIVA18 MCG IH (10:17)
[2016-11-25] MEDS ORDERED: LEVAQUIN DPS750 MG PO (10:17)
[2016-11-25] MEDS ORDERED: SYMBICORT160 MCG/6 IH (10:17)
== END 2016-06-16 13:30 | disposition home or self-care (01) ==
LOC: ER 10:15 → SSS 12:10
DX: T85.638A Leakage of other specified internal prosthetic devices, implants and grafts, initial encounter (principal); Z53.9 Procedure and treatment not carried out, unspecified reason; J90 Pleural effusion, not elsewhere classified; J98.11 Atelectasis; Z88.0 Allergy status to penicillin; Z88.8 Allergy status to other drugs, medicaments and biological substances